=== PATIENT | male | born 1960 | race Caucasian/White ===

== ENCOUNTER 2019-08-19 16:13 | Emergency (ER) | payer SELFPAY ==
[2019-08-19] MEDS ORDERED: Aspirin Chewable 81 MG TAB ONE (16:43)
[2019-08-19 16:58] LABS: #Basophils 0.1 thou/uL (0.0-0.2); #Eosinphils 0.1 thou/uL (0.0-0.7); #Monocytes 0.7 thou/uL (0.11-0.59); #Neutrophils 6.5 thou/uL (1.40-6.50); %Basophils 0.7 % (0.0-1.0); %Eosinophils 1.1 % (0.0-10.0); %Monocytes 7.4 % (0.0-10.0); %Neutrophils 70.8 % (42.0-75.0); Hemoglobin 14.9 g/dL (14.0-18.0); Large Platelets MODERATE; MDiff Complete? YES; Mean Corpuscular HGB CONC 31.9 g/dL (32.0-36.0); Mean Corpuscular Hemoglobin 31.9 pg (27.0-31.0); Platelet Count 106 thou/uL (130-400); Platelet Morphology Comment Appears Decreased; RBC Distribution Width 12.3 % (11.5-14.5); Red Blood Cell (RBC) Count 4.67 mill/uL (4.70-6.10); White Blood Cell (WBC) Count 9.2 thou/uL (4.8-10.8)
[2019-08-19 17:05] LABS: ALT (SGPT) 15 U/L (8-55); AST (SGOT) 23 U/L (5-34); Albumin 4.7 g/dL (3.5-5.0); Alkaline Phosphatase 68 U/L (40-110); Anion Gap 17 mmol/L (10-20); BUN (Urea Nitrogen) 17 mg/dL (8.4-25.7); Bilirubin, Total 0.6 mg/dL (0.2-1.2); CK (CPK) 166 U/L (30-200); Calc. Creatinine Clearance 0 mL/min (70-130); Calcium 9.4 mg/dL (7.8-10.44); Carbon Dioxide 25 mmol/L (22-29); Chloride 104 mmol/L (98-107); Estimated GFR-MDRD 47; Globulin 2.7 g/dL (2.4-3.5); Glucose 115 mg/dL (70-105); Lipase 12 U/L (8-78); Potassium 3.6 mmol/L (3.5-5.1); Protein, Total 7.4 g/dL (6.0-8.3); Sodium 142 mmol/L (136-145)
[2019-08-19] MEDS ORDERED: Metoprolol Tartrate 5 MG/5 ML VIAL ONE (17:24)
[2019-08-19 17:33] LABS: CKMB 5.4 ng/mL (0-6.6)
--- NOTE | 2019-08-19 18:03 | RAD ---
PORTABLE CHEST: 08/19/19 HISTORY: Chest pain. No comparison. Linear opacity in the left lung base could represent linear atelectasis or infiltrate. The lungs are otherwise clear. No evidence of vascular congestion. Heart size is normal. IMPRESSION: Linear atelectasis and/or infiltrate in the left lung base. POS: [facility]
== END 2019-08-19 18:26 | disposition short-term general hospital (02) ==
LOC: NAV ERS 16:13
DX: I21.4 Non-ST elevation (NSTEMI) myocardial infarction (principal); I10 Essential (primary) hypertension; Z79.899 Other long term (current) drug therapy
CPT/HCPCS: 71045; 80053; 82550; 82553; 83690; 84484; 85025; 93005; 96374